=== PATIENT | male | born 1980 | race Caucasian/White ===

== ENCOUNTER 2017-03-20 03:39 | Emergency (ER) | payer MEDICAID ==
[~2017-03-20] VITALS: Ht 185.4 cm; Wt 103.0 kg
[2017-03-20 03:44] VITALS: BP 142/82; PULSE 97; RESP 16; TEMP 100.1; O2SAT 97
[2017-03-20] MEDS ORDERED: EFFE150C PO (03:46)
[2017-03-20] MEDS ORDERED: ATEN50TA PO (03:46)
[2017-03-20] MEDS ORDERED: SODIUM CHLOR 0.9% 1000 ML INJ 1,000 ML IV SCH (04:24)
[2017-03-20 04:27] VITALS: RESP 18; O2SAT 98
[2017-03-20] MEDS ORDERED: SODIUM CHLORIDE 0.9% FLUSH 10 ML FLUSH IVF PRN (04:30)
--- NOTE | 2017-03-20 04:36 | PD ---
HPI Chief Complaint: GI Complaint Time Seen by Provider: 04:15 Travel History International Travel<30 days: No Contact w/Intl Traveler<30days: No Traveled to known affect area: No History of Present Illness HPI The patient is a 36-year-old male who presents emergency department for rectal bleeding. The patient states he has had intermittent rectal bleeding since September 2016. The patient states she was evaluated at a hospital in [place] where they performed a CT scanned laboratory evaluation which was unremarkable. The patient states he continues to have some intermittent bleeding which she describes as occasionally dark and occasionally bright red with clots. He states the rectal bleeding is painless, he denies any history of known diverticulosis, internal hemorrhoids, external hemorrhoids, or fissures. He denies any history of gastritis, peptic ulcer disease, or anticoagulation. The symptoms are moderate, there are no alleviating or exacerbating factors. Occasionally the blood will be on the stool and occasionally the blood will fill the toilet. The patient has not followed up with a wet machine cutter and has not undergone endoscopy or colonoscopy. The patient states he has recently moved and has been unable to see a physician. [facility] Past Medical History Anxiety: Yes Diminished Hearing: No Hypertension: Yes Tetanus Vaccination: Unknown Influenza Vaccination: No Social History Alcohol Use: Yes (MODERATELY) Tobacco Use: Yes (1/2PPD) Substance Use: No Allergies-Medications (Allergen,Severity, Reaction): Coded Allergies: No Known Allergies (Unverified , 03/20/17) Reported Meds & Prescriptions Reported Meds & Active Scripts Active Reported Atenolol 50 Mg Tab 50 Mg PO BID Effexor XR 24 HR (Venlafaxine HCl) 150 Mg Cap 150 Mg PO DAILY Review of Systems Except as stated in HPI: all other systems reviewed are Neg General / Constitutional: No: Fever HENT: No: Lightheadedness Cardiovascular: No: Chest Pain or Discomfort, Dyspnea on exertion Respiratory: No: Shortness of Breath Gastrointestinal: Positive: Hematochezia, No: Nausea, Vomiting, Abdominal Pain , Hematemesis Genitourinary: No: Hematuria Musculoskeletal: No: Weakness Neurologic: No: Dizziness Physical Exam Narrative GENERAL: Awake, alert, nontoxic-appearing 36-year-old male who appears his stated age is in no acute respiratory distress. SKIN: Focused skin assessment warm/dry. HEAD: Atraumatic. Normocephalic. EYES: Pupils equal and round. No scleral icterus. No injection or drainage. ENT: No nasal bleeding or discharge. Mucous membranes pink and moist. NECK: Trachea midline. No JVD. CARDIOVASCULAR: Regular rate and rhythm. No murmur appreciated. RESPIRATORY: No accessory muscle use. Clear to auscultation. Breath sounds equal bilaterally. GASTROINTESTINAL: Abdomen soft, non-tender, nondistended. No rebound tenderness. No guarding, rigidity, or rebound tenderness. Rectal: No gross blood. Guaiac positive. MUSCULOSKELETAL: No obvious deformities. No clubbing. No cyanosis. No edema. NEUROLOGICAL: Awake and alert. No obvious cranial nerve deficits. Motor grossly within normal limits. Normal speech. PSYCHIATRIC: Appropriate mood and affect; insight and judgment normal. Data Data Last Documented VS Vital Signs Date Time Temp Pulse Resp B/P Pulse Ox O2 Delivery O2 Flow Rate FiO2 03/20/17 05:25 89 18 130/76 97 Room Air 03/20/17 03:44 100.1 Orders Complete Blood Count With Diff (03/20/17 04:24) Comprehensive Metabolic Panel (03/20/17 04:24) Prothrombin Time / Inr (Pt) (03/20/17 04:24) Act Partial Throm Time (Ptt) (03/20/17 04:24) Ecg Monitoring (03/20/17 04:24) Iv Access Insert/Monitor (03/20/17 04:24) Oximetry (03/20/17 04:24) Sodium Chlor 0.9% 1000 Ml Inj (Ns 1000 M (03/20/17 04:24) Sodium Chloride 0.9% Flush (Ns Flush) (03/20/17 04:30) Albuterol-Ipratropium Neb (Duoneb Neb) (03/20/17 05:00) Labs Laboratory Tests Test 03/20/17 04:33 White Blood Count 3.6 TH/MM3 Red Blood Count 4.13 MIL/MM3 Hemoglobin 10.8 GM/DL Hematocrit 34.1 % Mean Corpuscular Volume 82.7 FL Mean Corpuscular Hemoglobin 26.1 PG Mean Corpuscular Hemoglobin 31.5 % Concent Red Cell Distribution Width 21.1 % Platelet Count 194 TH/MM3 Mean Platelet Volume 8.1 FL Neutrophils (%) (Auto) 53.1 % Lymphocytes (%) (Auto) 15.0 % Monocytes (%) (Auto) 30.1 % Eosinophils (%) (Auto) 0.8 % Basophils (%) (Auto) 1.0 % Neutrophils # (Auto) 1.9 TH/MM3 Lymphocytes # (Auto) 0.5 TH/MM3 Monocytes # (Auto) 1.1 TH/MM3 Eosinophils # (Auto) 0.0 TH/MM3 Basophils # (Auto) 0.0 TH/MM3 CBC Comment DIFF FINAL Differential Comment Prothrombin Time 11.1 SEC Prothromb Time International 1.0 RATIO Ratio Activated Partial 28.5 SEC Thromboplast Time Sodium Level 137 MEQ/L Potassium Level 3.1 MEQ/L Chloride Level 101 MEQ/L Carbon Dioxide Level 26.4 MEQ/L Anion Gap 10 MEQ/L Blood Urea Nitrogen 7 MG/DL Creatinine 0.90 MG/DL Estimat Glomerular Filtration 94 ML/MIN Rate Random Glucose 93 MG/DL Calcium Level 8.5 MG/DL Total Bilirubin 0.2 MG/DL Aspartate Amino Transf 100 U/L (AST/SGOT) Alanine Aminotransferase 106 U/L (ALT/SGPT) Alkaline Phosphatase 103 U/L Total Protein 7.0 GM/DL Albumin 3.5 GM/DL [facility] [place] Medical Decision Making Medical Screen Exam Complete: Yes Emergency Medical Condition: Yes Medical Record Reviewed: Yes Interpretation(s) Laboratory Tests Test 03/20/17 04:33 White Blood Count 3.6 TH/MM3 Red Blood Count 4.13 MIL/MM3 Hemoglobin 10.8 GM/DL Hematocrit 34.1 % Mean Corpuscular Volume 82.7 FL Mean Corpuscular Hemoglobin 26.1 PG Mean Corpuscular Hemoglobin 31.5 % Concent Red Cell Distribution Width 21.1 % Platelet Count 194 TH/MM3 Mean Platelet Volume 8.1 FL Neutrophils (%) (Auto) 53.1 % Lymphocytes (%) (Auto) 15.0 % Monocytes (%) (Auto) 30.1 % Eosinophils (%) (Auto) 0.8 % Basophils (%) (Auto) 1.0 % Neutrophils # (Auto) 1.9 TH/MM3 Lymphocytes # (Auto) 0.5 TH/MM3 Monocytes # (Auto) 1.1 TH/MM3 Eosinophils # (Auto) 0.0 TH/MM3 Basophils # (Auto) 0.0 TH/MM3 CBC Comment DIFF FINAL Differential Comment Prothrombin Time 11.1 SEC Prothromb Time International 1.0 RATIO Ratio Activated Partial 28.5 SEC Thromboplast Time Sodium Level 137 MEQ/L Potassium Level 3.1 MEQ/L Chloride Level 101 MEQ/L Carbon Dioxide Level 26.4 MEQ/L Anion Gap 10 MEQ/L Blood Urea Nitrogen 7 MG/DL Creatinine 0.90 MG/DL Estimat Glomerular Filtration 94 ML/MIN Rate Random Glucose 93 MG/DL Calcium Level 8.5 MG/DL Total Bilirubin 0.2 MG/DL Aspartate Amino Transf 100 U/L (AST/SGOT) Alanine Aminotransferase 106 U/L (ALT/SGPT) Alkaline Phosphatase 103 U/L Total Protein 7.0 GM/DL Albumin 3.5 GM/DL Differential Diagnosis Differential diagnosis includes diverticulosis, internal hemorrhoids, external hemorrhoids, upper GI bleed, gastritis, peptic ulcer disease, angiodysplasia, and Meckel's diverticulum. Narrative Course IV was established, labs are drawn and sent, and the patient was placed on cardiac telemetry monitoring and continuous pulse oximetry monitoring. CBC was sent to lab. The patient's hemoglobin is 10.8, he denies orthostatic changes or significant exertional shortness of breath. He is had intermittent symptoms since September, he has already had a CT of his abdomen and pelvis per his report for previous GI bleed. The patient is advised to follow-up with gastroenterology, he may benefit from outpatient endoscopy and/or colonoscopy. The patient's bleeding appears to be bright red blood may be related to diverticulosis, angiodysplasia, or internal hemorrhoids. He is advised to follow-up with gastroenterology. Potassium is mildly low at 3.1, was replaced orally. The patient is advised to follow-up with gastroenterology for outpatient endoscopy/colonoscopy. [facility] Point of Care Internal Pos. & Neg. Controls: Passed Fecal Specimen Occult Blood: Positive Diagnosis Primary Impression: GI bleed Qualified Code: K92.2 - Gastrointestinal hemorrhage, unspecified gastrointestinal hemorrhage type Additional Impression: Hematochezia Patient Instructions: General Instructions Additional Instructions: Follow-up with gastroenterology on an outpatient basis for possible endoscopy and/or colonoscopy. Med/Other Pt SpecificInfo: No Change to Meds Disposition: 01 DISCHARGE HOME Condition: Stable Jerel Resendiz MD Mar 20, 2017 04:36
[2017-03-20 04:44] LABS: AUTOMATED NEUTROPHIL # 1.9 TH/MM3 (1.8-7.7); EOSINOPHIL % 0.8 % (0.0-4.0); HEMATOCRIT 34.1 % (39.0-51.0); HEMO FLAGS DIFF FINAL; LYMPHOCYTE # 0.5 TH/MM3 (1.0-4.8); MEAN CELL VOLUME 82.7 FL (80.0-100.0); MEAN CORPUSCULAR HEMOGLOBIN 26.1 PG (27.0-34.0); MEAN CORPUSCULAR HGB CONC 31.5 % (32.0-36.0); MONO % 30.1 % (0.0-8.0); NEUT % 53.1 % (16.0-70.0); PLATELET COUNT 194 TH/MM3 (150-450); RED BLOOD COUNT 4.13 MIL/MM3 (4.50-5.90); RED CELL DISTRIBUTION WIDTH 21.1 % (11.6-17.2); WHITE BLOOD COUNT 3.6 TH/MM3 (4.0-11.0)
[2017-03-20 04:56] VITALS: O2SAT 98
[2017-03-20] MEDS ORDERED: RESP: ALBUTEROL 2.5 MG/IPRATROPIUM 0.5 MG NEB (SCH) NEB ONE (05:00)
[2017-03-20 05:02] LABS: APTT (PATIENT) 28.5 SEC (24.3-30.1); PROTHROMBIN TIME - PATIENT 11.1 SEC (9.8-11.6)
[2017-03-20 05:14] LABS: ALT (GPT) 106 U/L (12-78); ANION GAP 10 MEQ/L (5-15); AST (GOT) 100 U/L (15-37); BICARBONATE 26.4 MEQ/L (21.0-32.0); BLOOD UREA NITROGEN 7 MG/DL (7-18); CHLORIDE 101 MEQ/L (98-107); GLOMERULAR FILTRATION RATE 94 ML/MIN (>89); POTASSIUM 3.1 MEQ/L (3.5-5.1); SODIUM (NA) 137 MEQ/L (136-145)
[2017-03-20 05:17] LABS: ALKALINE PHOSPHATASE 103 U/L (45-117); TOTAL BILIRUBIN ADULT 0.2 MG/DL (0.2-1.0)
[2017-03-20 05:25] VITALS: BP 130/76; PULSE 89; RESP 18; O2SAT 97
== END 2017-03-20 06:02 | disposition home or self-care (01) ==
LOC: NEPE 03:39
DX: K92.2 Gastrointestinal hemorrhage, unspecified (principal); K92.1 Melena; F41.9 Anxiety disorder, unspecified; F17.210 Nicotine dependence, cigarettes, uncomplicated; I10 Essential (primary) hypertension
CPT/HCPCS: 80053; 85025; 85610; 85730; 94664; 96360; 99283; J7030

== ENCOUNTER 2017-05-27 11:02 | Emergency (ER) | payer MEDICAID ==
[~2017-05-27] VITALS: Ht 185.4 cm; Wt 98.0 kg
[~2017-05-27 11:02] MED LIST: ATEN50TA PO; EFFE150C PO
[2017-05-27 11:06] VITALS: BP 131/89; PULSE 79; RESP 18; TEMP 98.2; O2SAT 99
--- NOTE | 2017-05-27 11:24 | PD ---
Physical Exam Time Seen by Provider: 11:23 Narrative 36 y/o male here for evaluation of feelings of depression, suicidal thoughts. Vital signs reviewed. Seen at triage desk. Awaiting bed placement. Data Data Last Documented VS Vital Signs Date Time Temp Pulse Resp B/P Pulse Ox O2 Delivery O2 Flow Rate FiO2 05/27/17 11:06 98.2 79 18 131/89 99 MDM Medical Record Reviewed: Yes Supervised Visit with LINDA: No Oziel Salcido May 27, 2017 11:24
[2017-05-27 11:56] LABS: AUTOMATED NEUTROPHIL # 3.2 TH/MM3 (1.8-7.7); BASOPHIL # 0.1 TH/MM3 (0-0.2); BASOPHIL % 1.3 % (0.0-2.0); EOSINOPHIL # 0.1 TH/MM3 (0-0.4); EOSINOPHIL % 2.6 % (0.0-4.0); HEMATOCRIT 43.1 % (39.0-51.0); HEMO FLAGS DIFF FINAL; LYMPH % 20.8 % (9.0-44.0); LYMPHOCYTE # 1.1 TH/MM3 (1.0-4.8); MEAN CELL VOLUME 86.6 FL (80.0-100.0); MEAN CORPUSCULAR HEMOGLOBIN 28.8 PG (27.0-34.0); MEAN CORPUSCULAR HGB CONC 33.2 % (32.0-36.0); MONO % 12.1 % (0.0-8.0); NEUT % 63.2 % (16.0-70.0); PLATELET COUNT 322 TH/MM3 (150-450); RED BLOOD COUNT 4.98 MIL/MM3 (4.50-5.90); RED CELL DISTRIBUTION WIDTH 18.1 % (11.6-17.2); WHITE BLOOD COUNT 5.1 TH/MM3 (4.0-11.0)
[2017-05-27 12:17] LABS: ALT (GPT) 48 U/L (12-78); ANION GAP 15 MEQ/L (5-15); AST (GOT) 54 U/L (15-37); BLOOD UREA NITROGEN 7 MG/DL (7-18); CHLORIDE 98 MEQ/L (98-107); GLOMERULAR FILTRATION RATE 110 ML/MIN (>89); POTASSIUM 3.9 MEQ/L (3.5-5.1); SODIUM (NA) 135 MEQ/L (136-145)
[2017-05-27 12:19] LABS: ALCOHOL 299 MG/DL (0-5); ALKALINE PHOSPHATASE 113 U/L (45-117); TOTAL BILIRUBIN ADULT 0.3 MG/DL (0.2-1.0)
[2017-05-27 12:27] LABS: ACETAMINOPHEN LESS THAN 2.0 MCG/ML (10.0-30.0)
== END 2017-05-27 14:18 | disposition left against medical advice (07) ==
LOC: NED 11:02
DX: F32.9 Major depressive disorder, single episode, unspecified (principal); R45.851 Suicidal ideations; Z53.21 Procedure and treatment not carried out due to patient leaving prior to being seen by health care provider
CPT/HCPCS: 80053; 80307; 85025; 99283